=== PATIENT | male | born 1990 ===

== ENCOUNTER 2017-01-23 14:02 | Emergency (ER) | payer OTHER ==
[2017-01-23 14:46] VITALS: O2SAT 98
--- NOTE | 2017-01-23 15:22 | ED PDOC ---
HPI: Psych/Substance Abuse Time Seen by Provider: 01/23/17 14:48 Chief Complaint (Nursing): Psychiatric Evaluation Chief Complaint (Provider): Med clearance and Crisis eval History Per: Patient Additional Complaint(s): Patient is a 26 yo male, PMH of Depression and Anxiety (neither of which he takes medication for), presents to ED stating he is having auditory hallucinations that started today. Pt admits that he has been drinking and using cocaine since Thursday, denies any chest pain or SOB. No HI or SI Past Medical History Reviewed: Nursing Documentation, Vital Signs Vital Signs: Last Vital Signs Temp 97.8 F 01/23/17 14:41 Pulse 92 H 01/23/17 14:41 Resp 18 01/23/17 14:41 BP 129/67 01/23/17 14:41 Pulse Ox 98 01/23/17 14:41 - Medical History PMH: Anxiety Denies: Chronic Kidney Disease - Surgical History Surgical History: Appendectomy - Family History Family History: States: Unknown Family Hx - Social History Alcohol: > 2 Drinks/Day Drugs: Cocaine - Allergies Allergies/Adverse Reactions: Allergies Allergy/AdvReac Type Severity Reaction Status Date / Time No Known Allergies Allergy Verified 01/23/17 14:46 Review of Systems ROS Statement: Except As Marked, All Systems Reviewed And Found Negative Psych: Positive for: Other (hallucinations) Physical Exam - Reviewed Nursing Documentation Reviewed: Yes Vital Signs Reviewed: Yes - Physical Exam Appears: Positive for: Well, Non-toxic, No Acute Distress Head Exam: Positive for: ATRAUMATIC, NORMAL INSPECTION, NORMOCEPHALIC Skin: Positive for: Normal Color, Warm, DRY Eye Exam: Positive for: EOMI, Normal appearance, PERRL ENT: Positive for: Normal ENT Inspection Neck: Positive for: Normal, Painless ROM Cardiovascular/Chest: Positive for: Regular Rate, Rhythm Respiratory: Positive for: CNT, Normal Breath Sounds Gastrointestinal/Abdominal: Positive for: Normal Exam, Bowel Sounds, Soft Back: Positive for: Normal Inspection Extremity: Positive for: Normal ROM Neurologic/Psych: Positive for: Alert, Oriented - Laboratory Results Result Diagrams: 01/23/17 15:52 01/23/17 15:52 - ECG O2 Sat by Pulse Oximetry: 98 Medical Decision Making Medical Decision Making: EKG: NSR at 88 bpm, no axis deviation or acute ST changes as read by ED MD Pt placed on cardiac cath tech. vitals remain stable Labs resulted and reviewed with pt who demonstrated full understanding Pt underwent crisis eval, see notes. 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
[2017-01-23 16:00] LABS: BASO # 0.1 K/uL (0.0-0.2); BASO % 0.5 % (0.0-2.0); EOS # 0.4 K/uL (0.0-0.7); EOS % 2.4 % (0.0-4.0); HEMATOCRIT 52.4 % (35.0-51.0); LYMPH # 3.8 K/uL (1.0-4.3); LYMPH % 25.1 % (20.0-40.0); MEAN CELL VOLUME 85.5 fl (80.0-94.0); MEAN CORPUSCULAR HEMOGLOBIN 28.3 pg (27.0-31.0); MEAN CORPUSCULAR HGB CONC 33.1 g/dL (33.0-37.0); MEAN PLATELET VOLUME 8.4 fl (7.2-11.7); MONO # 1.2 K/uL (0.0-0.8); MONO % 7.9 % (0.0-10.0); NEUT # 9.7 K/uL (1.8-7.0); NEUT % 64.1 % (50.0-75.0); NRBC % 0.1 % (0.0-0.0); WHITE BLOOD COUNT 15.2 K/uL (4.8-10.8)
[2017-01-23 16:04] LABS: URINE BACTERIA RARE (<OCC); URINE BILIRUBIN NEGATIVE (NEGATIVE); URINE BLOOD SMALL (NEGATIVE); URINE COLOR YELLOW (YELLOW); URINE GLUCOSE (UA) NEG (Normal); URINE KETONE 20 mg/dL (NEGATIVE); URINE LEUKOCYTE ESTERASE TRACE Leu/uL (Negative); URINE PROTEIN NEGATIVE (NEGATIVE); URINE UROBILINOGEN 0.2-1.0 mg/dL (0.2-1.0); WBC URINE 7 /hpf (0-5)
[2017-01-23 16:11] LABS: ALB/GLOB RATIO 1.3 (1.0-2.1); ALCOHOL SERUM 15 mg/dl (0-10); ALKALINE PHOSPHATASE 63 U/L (38-126); ALT/SGPT 51 U/L (21-72); AST/SGOT 46 U/L (17-59); BLOOD UREA NITROGEN 9 mg/dl (9-20); CALCIUM 8.9 mg/dL (8.4-10.2); CARBON DIOXIDE 22 mmol/L (22-30); CHLORIDE 103 mmol/L (98-107); GFR AFRICAN-AMERICAN > 60; GLUCOSE,RANDOM 67 mg/dL (75-110); POTASSIUM 3.9 MMOL/L (3.6-5.0); SODIUM 142 mmol/l (132-148); TOTAL PROTEIN 7.9 G/DL (6.3-8.2)
[2017-01-23 16:17] LABS: RBC URINE 5 /hpf (0-3)
[2017-01-23 17:38] VITALS: RESP 17
[2017-01-23 19:20] VITALS: BP 127/78; PULSE 80; TEMP 97.6
--- NOTE | 2017-01-24 10:15 | CARD ---
APPROVED REPORT EKG Measurement Heart [id number] VT [id number] <Conclusion> Normal sinus rhythm Prolonged QT Abnormal ECG
== END 2017-01-23 19:22 | disposition home or self-care (01) ==
LOC: H.ER 14:02
DX: F14.151 Cocaine abuse with cocaine-induced psychotic disorder with hallucinations (principal); F32.9 Major depressive disorder, single episode, unspecified; F41.9 Anxiety disorder, unspecified
CPT/HCPCS: 80053; 81003; 85025; 93005; 99282; G0480